=== PATIENT | male | born 1980 | race American Indian/Alaskan Native ===

== ENCOUNTER 2021-10-26 13:14 | Outpatient (CLI) | payer MEDICARE ==
[2021-10-26 13:57] LABS: INR 1.55 (0.87-1.13)
== END 2021-10-26 13:15 | disposition home or self-care (01) ==
LOC: LAB 13:14
PROVIDERS: ATTEND Internal Medicine Cardiovascular Disease
DX: I50.9 Heart failure, unspecified (principal); Z95.811 Presence of heart assist device; Z79.01 Long term (current) use of anticoagulants
CPT/HCPCS: 36415; 85610

== ENCOUNTER 2021-11-02 10:57 | Outpatient (CLI) | payer MEDICARE ==
[2021-11-02 11:58] LABS: INR 2.2 (0.87-1.13)
== END 2021-11-02 10:58 | disposition home or self-care (01) ==
LOC: LAB 10:57
PROVIDERS: ATTEND Internal Medicine Cardiovascular Disease
DX: I50.9 Heart failure, unspecified (principal); Z79.01 Long term (current) use of anticoagulants; Z95.811 Presence of heart assist device
CPT/HCPCS: 36415; 85610

== ENCOUNTER 2021-11-09 10:20 | Outpatient (CLI) | payer MEDICARE ==
[2021-11-09 11:10] LABS: INR 2.11 (0.87-1.13)
== END 2021-11-09 10:21 | disposition home or self-care (01) ==
LOC: LAB 10:20
PROVIDERS: ATTEND Internal Medicine Cardiovascular Disease
DX: I50.9 Heart failure, unspecified (principal); Z95.811 Presence of heart assist device; Z79.01 Long term (current) use of anticoagulants
CPT/HCPCS: 36415; 85610